=== PATIENT | female | born 1985 | race Caucasian/White ===

== ENCOUNTER 2018-01-09 09:43 | Emergency (ER) | payer BC ==
--- NOTE | 2018-01-09 10:03 | EDM.PDOC ---
ED HPI GENERAL MEDICAL PROBLEM - General Chief Complaint: Back Pain or Injury Time Seen by Provider: 01/09/18 09:52 - History of Present Illness INITIAL COMMENTS - FREE TEXT/NARRATIVE: HISTORY AND PHYSICAL: History of present illness: Patient 32-year-old female presents with concern of right-sided chest and back pleuritic pain worse over last several days unrelieved with over-the- counter medication states she has some mild shortness of breath she is on oral contraceptives she denies history DVT or PE denies trauma denies fever chills vomiting or other concern Review of systems: As per history of present illness and below otherwise all systems reviewed and negative. Past medical history: As per history of present illness and as reviewed below otherwise noncontributory. Surgical history: As per history of present illness and as reviewed below otherwise noncontributory. Social history: No reported history of drug or alcohol abuse. Family history: As per history of present illness and as reviewed below otherwise noncontributory. Physical exam: HEENT: Atraumatic, normocephalic, pupils reactive, negative for conjunctival pallor or scleral icterus, mucous membranes moist, throat clear, neck supple, nontender, trachea midline. Lungs: Clear to auscultation, breath sounds equal bilaterally, chest nontender. Heart: S1S2, regular, negative for clicks, rubs, or JVD. Abdomen: Soft, nondistended, nontender. Negative for masses or hepatosplenomegaly. Negative for costovertebral tenderness. Pelvis: Stable nontender. Genitourinary: Deferred. Rectal: Deferred. Extremities: Atraumatic, negative for cords or calf pain. Neurovascular unremarkable. Neuro: Awake, alert, oriented. Cranial nerves II through XII unremarkable. Cerebellum unremarkable. Motor and sensory unremarkable throughout. Exam nonfocal. Diagnostics: CBC CMP influenza hCG CTA PE protocol Therapeutics: Saline 1 L bolus Impression: #1 right-sided pleuritic chest/back pain Definitive disposition and diagnosis as appropriate pending reevaluation and review of above. - Related Data Allergies Allergy/AdvReac Type Severity Reaction Status Date / Time No Known Allergies Allergy Verified 12/25/15 19:22 Home Meds: Home Meds . [No Known Home Meds] 12/25/15 [History] Past Medical History - Past Health History Medical/Surgical History: Denies Medical/Surgical History Social & Family History - Tobacco Use Smoking Status *Q: Unknown Ever Smoked - Recreational Drug Use Recreational Drug Use: No ED ROS GENERAL - Review of Systems Review Of Systems: ROS reveals no pertinent complaints other than HPI. ED EXAM, GENERAL - Physical Exam Exam: See Below (Dictation) Course - Vital Signs Last Recorded V/S: Last Vital Signs Temp 36.6 C 01/09/18 09:56 Pulse 98 01/09/18 09:56 Resp 18 01/09/18 09:56 BP 126/85 01/09/18 09:56 Pulse Ox 98 01/09/18 09:56 - Orders/Labs/Meds Orders: Active Orders 24 hr Category Date Time Status CTA Chest W WO Contrast [Ang Chest] [CT] Stat Exams 01/09/18 10:02 Taken Labs: Laboratory Tests 01/09/18 01/09/18 01/09/18 Range/Units 10:14 10:14 10:14 WBC 7.97 (4.0-11.0) K/uL RBC 4.28 L (4.30-5.90) M/uL Hgb 13.9 (12.0-16.0) g/dL Hct 41.2 (36.0-46.0) % MCV 96.3 (80.0-98.0) fL MCH 32.5 H (27.0-32.0) pg MCHC 33.7 (31.0-37.0) g/dL RDW Std Deviation 43.6 (28.0-62.0) fl RDW Coeff of Triston 13 (11.0-15.0) % Plt Count 262 (150-400) K/uL MPV 10.40 (7.40-12.00) fL Neut % (Auto) 63.7 (48.0-80.0) % Lymph % (Auto) 29.5 (16.0-40.0) % [place] % (Auto) 5.1 (0.0-15.0) % Eos % (Auto) 1.4 (0.0-7.0) % Baso % (Auto) 0.3 (0.0-1.5) % Neut # (Auto) 5.1 (1.4-5.7) K/uL Lymph # (Auto) 2.4 (0.6-2.4) K/uL [place] # (Auto) 0.4 (0.0-0.8) K/uL Eos # (Auto) 0.1 (0.0-0.7) K/uL Baso # (Auto) 0.0 (0.0-0.1) K/uL Nucleated RBC % 0.0 /100WBC Nucleated RBCs # 0 K/uL Sodium 144 (136-146) mmol/L Potassium 3.7 (3.5-5.1) mmol/L Chloride 109 (98-110) mmol/L Carbon Dioxide 25 (21-31) mmol/L BUN 11 (6.0-23.0) mg/dL Creatinine 0.7 (0.6-1.5) mg/dL Est Cr Clr Drug Dosing 99.45 mL/min Estimated GFR (MDRD) > 60.0 ml/min Glucose 87 (60-110) mg/dL Calcium 9.4 (8.8-10.8) mg/dL Total Bilirubin 0.5 (0.1-1.5) mg/dL AST 21 (5-40) IU/L ALT 20 (8-54) IU/L Alkaline Phosphatase 60 (40-150) Total Protein 7.5 (6.0-8.0) g/dL Albumin 4.2 (3.5-5.0) g/dL Globulin 3.3 (2.0-3.5) g/dL Albumin/Globulin Ratio 1.3 (1.3-2.8) HCG, Qual NEGATIVE (NEG) Meds: Medications Discontinued Medications Generic Name Dose Route Start Last Admin Trade Name Freq PRN Reason Stop Dose Admin Iopamidol 50 ml 01/09/18 11:25 01/09/18 11:25 Isovue-370 (76%) IV 01/09/18 11:26 50 ml ONETIME ONE Administration Departure - Departure Time of Disposition: 12:22 Disposition: Home, Self-Care 01 Condition: Good Clinical Impression: Pleurisy - Discharge Information Referrals: PCP,None [Primary Care Provider] - Forms: ED Department Discharge Additional Instructions: The following information is given to patients seen in the emergency department who are being discharged to home. This information is to outline your options for follow-up care. We provide all patients seen in our emergency department with a follow-up referral. The need for follow-up, as well as the timing and circumstances, are variable depending upon the specifics of your emergency department visit. If you don't have a primary care physician on staff, we will provide you with a referral. We always advise you to contact your personal physician following an emergency department visit to inform them of the circumstance of the visit and for follow-up with them and/or the need for any referrals to a consulting specialist. The emergency department will also refer you to a specialist when appropriate. This referral assures that you have the opportunity for followup care with a specialist. All of these measure are taken in an effort to provide you with optimal care, which includes your followup. Under all circumstances we always encourage you to contact your private physician who remains a resource for coordinating your care. When calling for followup care, please make the office aware that this follow-up is from your recent emergency room visit. If for any reason you are refused follow-up, please contact the [facility] emergency department at and asked to speak to the emergency department charge nurse. Ultram/Motrin as directed follow-up private medical doctor as needed as discussed and return as needed as discussed - My Orders Last 24 Hours: My Active Orders 01/09/18 10:02 CTA Chest W WO Contrast [Ang Chest] [CT] Stat - Assessment/Plan Last 24 Hours: My Active Orders 01/09/18 10:02 CTA Chest W WO Contrast [Ang Chest] [CT] Stat
[2018-01-09 10:46] LABS: CHLORIDE,CL 109 mmol/L (98-110); SODIUM,NA 144 mmol/L (136-146)
[2018-01-09] MEDS ORDERED: Iopamidol 755 MG/ML 50 ML Bottle IV ONE (11:25)
[2018-01-09 12:39] VITALS: BP 115/71
--- NOTE | 2018-01-11 09:27 | CT ---
EXAM DATE: 01/09/18 PATIENT'S AGE: 32 Patient: SUNIL SWARTZ Facility: [place], [place] Site . Site : 1985 Study: CT Chest Angio [id number]/24/2018 11:29:35 AM Ordering Physician: Emmy Thurman Final Report: INDICATION: Radiating back pain/ chest pain. TECHNIQUE: Volumetric CT pulmonary angiogram following administration of 50 mL Isovue-370 intravenous contrast. Multiplanar reconstruction. FINDINGS: This is a technically good study. There are no pulmonary emboli. Thoracic aorta normal in caliber and displays normal contrast enhancement. Thyroid gland bilaterally symmetrical. Thoracic lymph nodes normal by size criteria. Trachea and mainstem bronchi are patent. Lungs free of nodules, masses, and areas of acute airspace consolidation. No pleural fluid. No abnormal pericardial fluid. No acute bony abnormality. IMPRESSION: Examination negative for pulmonary emboli. No other acute chest disease. Please note that all CT scans at this facility use dose modulation, iterative reconstruction, and/or weight-based dosing when appropriate to reduce radiation dose to as low as reasonably achievable. Dictated by Shamar Baker MD @ Jan 09 2018 11:58AM (Electronic Signature) Report Signed by Proxy. [facility]AMPUSMarcos
== END 2018-01-09 12:35 | disposition home or self-care (01) ==
LOC: MW.ED 09:43
DX: R09.1 Pleurisy (principal)
CPT/HCPCS: 36415; 71275; 80053; 84703; 85025; 87804; 99284; Q9967; 99283

== ENCOUNTER 2019-09-11 14:46 | Emergency (ER) | payer BC ==
--- NOTE | 2019-09-11 15:29 | EDM.PDOC ---
ED HPI GENERAL MEDICAL PROBLEM - General Chief Complaint: Upper Extremity Injury/Pain Stated Complaint: RT HAND PAIN Time Seen by Provider: 09/11/19 14:47 Source of Information: Reports: Patient, Family History Limitations: Reports: No Limitations, Language Barrier - History of Present Illness INITIAL COMMENTS - FREE TEXT/NARRATIVE: HISTORY AND PHYSICAL: History of present illness: Patient is a 34-year-old female, who is primarily speaking, who presents with her daughter who she is using for translation. Parts Representative was offered to patient but she declines at this time. Patient states that she has been having pins and needle sensation in her right hand over the past 2-3 days with pain in her right shoulder that radiates down to her right hand. Patient states her symptoms coming go and are not constant or consistent. Patient states that time she does feel like her hand is falling asleep but when she shakes it the sensation goes away. Patient denies any trauma or injury to the arm or any other symptoms or concerns. Patient denies any health history. Patient denies fever, chills, chest pain, shortness of breath, or cough. Denies headache, neck stiff ness, change in vision, syncope, or near syncope. Denies nausea, vomiting, abdominal pain, diarrhea, constipation, or dysuria. Has not noted any blood in urine or stool. Patient has been eating and drinking appropriately. Review of systems: As per history of present illness and below otherwise all systems reviewed and negative. Past medical history: As per history of present illness and as reviewed below otherwise noncontributory. Surgical history: As per history of present illness and as reviewed below otherwise noncontributory. Social history: See social history for further information Family history: As per history of present illness and as reviewed below otherwise noncontributory. Physical exam: General: Patient is alert, oriented, and in no acute distress. Patient sitting comfortably on exam table. HEENT: Atraumatic, normocephalic, pupils equal and reactive bilaterally, negative for conjunctival pallor or scleral icterus, mucous membranes moist, TMs normal bilaterally, throat clear, neck supple, nontender, trachea midline. No drooling or trismus noted. No meningeal signs. No hot potato voice noted. Lungs: Clear to auscultation, breath sounds equal bilaterally, chest nontender. Heart: S1S2, regular rate and rhythm without overt murmur Abdomen: Soft, nondistended, nontender. Negative for masses or hepatosplenomegaly. Negative for costovertebral tenderness. Pelvis: Stable nontender. Genitourinary: Deferred. Rectal: Deferred. Skin: Intact, warm, dry. No lesions or rashes noted. Extremities: Atraumatic, negative for cords or calf pain. Neurovascular unremarkable. Patient has complete range of motion of bilateral upper and lower extremities without pain or difficulty with no obvious deformity of bilateral upper extremities. Patient has full sensation of the RUE to light touch, 2 point discrimination, and sharp/dull touch. Radial pulses grossly intact of the right upper extremity with capillary refill less than 2 seconds. Patient does have mild pain to palpation of the right shoulder. Positive Phalen and Tinel sign of the right upper extremity Neuro: Awake, alert, oriented. Cranial nerves II through XII unremarkable. Cerebellum unremarkable. Motor and sensory unremarkable throughout. Exam nonfocal. Notes: Dr. Booth verbally involved in patient care. Voices understanding and is agreeable to plan of care. Denies any further questions or concerns at this time. Diagnostics: CBC, CMP, UA, shoulder x-ray, cervical spine XR Therapeutics: cock up wrist splint Prescription: None Impression: Radiculopathy Plan: 1. You can alternate ibuprofen and Tylenol as checked her for pain and discomfort. 2. Follow-up with your primary care provider as discussed. Return to the ED as needed and as discussed. Definitive disposition and diagnosis as appropriate pending reevaluation and review of above. 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 ED EXAM, GENERAL - Physical Exam Exam: See Below (See dictation) Course - Vital Signs Last Recorded V/S: Last Vital Signs Temp 97.1 F 09/11/19 14:54 Pulse 73 09/11/19 14:54 Resp 18 09/11/19 14:54 BP 112/77 09/11/19 15:35 Pulse Ox 98 09/11/19 14:54 - Orders/Labs/Meds Orders: Active Orders 24 hr Category Date Time Status DME for Discharge [COMM] Stat Oth 09/11/19 16:59 Ordered Labs: Laboratory Tests 09/11/19 09/11/19 09/11/19 Range/Units 15:32 15:45 15:45 WBC 7.20 (4.0-11.0) K/uL RBC 4.18 L (4.30-5.90) M/uL Hgb 13.4 (12.0-16.0) g/dL Hct 39.9 (36.0-46.0) % MCV 95.5 (80.0-98.0) fL MCH 32.1 H (27.0-32.0) pg MCHC 33.6 (31.0-37.0) g/dL RDW Std Deviation 42.7 (28.0-62.0) fl RDW Coeff of Triston 12 (11.0-15.0) % Plt Count 267 (150-400) K/uL MPV 10.60 (7.40-12.00) fL Neut % (Auto) 53.0 (48.0-80.0) % Lymph % (Auto) 41.3 H (16.0-40.0) % [place] % (Auto) 4.4 (0.0-15.0) % Eos % (Auto) 1.0 (0.0-7.0) % Baso % (Auto) 0.3 (0.0-1.5) % Neut # (Auto) 3.8 (1.4-5.7) K/uL Lymph # (Auto) 3.0 H (0.6-2.4) K/uL [place] # (Auto) 0.3 (0.0-0.8) K/uL Eos # (Auto) 0.1 (0.0-0.7) K/uL Baso # (Auto) 0.0 (0.0-0.1) K/uL Nucleated RBC % 0.0 /100WBC Nucleated RBCs # 0 K/uL Sodium 140 (136-145) mmol/L Potassium 3.8 (3.5-5.1) mmol/L Chloride 105 (98-107) mmol/L Carbon Dioxide 27.3 (21.0-32.0) mmol/L BUN 12 (7.0-18.0) mg/dL Creatinine 0.6 (0.6-1.0) mg/dL Est Cr Clr Drug Dosing 104.49 mL/min Estimated GFR (MDRD) > 60.0 ml/min Glucose 104 (74-106) mg/dL Calcium 9.1 (8.5-10.1) mg/dL Total Bilirubin 0.3 (0.2-1.0) mg/dL AST 15 (15-37) IU/L ALT 19 (14-63) IU/L Alkaline Phosphatase 60 (46-116) U/L Total Protein 7.9 (6.4-8.2) g/dL Albumin 3.7 (3.4-5.0) g/dL Globulin 4.2 H (2.6-4.0) g/dL Albumin/Globulin Ratio 0.9 (0.9-1.6) Urine Color YELLOW Urine Appearance CLEAR Urine pH 7.5 (5.0-8.0) Ur Specific [place] 1.020 (1.001-1.035) Urine Protein NEGATIVE (NEGATIVE) mg/dL Urine Glucose (UA) NEGATIVE (NEGATIVE) mg/dL Urine Ketones NEGATIVE (NEGATIVE) mg/dL Urine Occult Blood NEGATIVE (NEGATIVE) Urine Nitrite NEGATIVE (NEGATIVE) Urine Bilirubin NEGATIVE (NEGATIVE) Urine Urobilinogen 1.0 (<2.0) EU/dL Ur Leukocyte Esterase NEGATIVE (NEGATIVE) Departure - Departure Time of Disposition: 17:02 Disposition: Home, Self-Care 01 Clinical Impression: Radiculopathy Qualifiers: Spinal region: unspecified Qualified Code(s): M54.10 - Radiculopathy, site unspecified - Discharge Information Referrals: PCP,None [Primary Care Provider] - Forms: ED Department Discharge Additional Instructions: The following information is given to patients seen in the emergency department who are being discharged to home. This information is to outline your options for follow-up care. We provide all patients seen in our emergency department with a follow-up referral. The need for follow-up, as well as the timing and circumstances, are variable depending upon the specifics of your emergency department visit. If you don't have a primary care physician on staff, we will provide you with a referral. We always advise you to contact your personal physician following an emergency department visit to inform them of the circumstance of the visit and for follow-up with them and/or the need for any referrals to a consulting specialist. The emergency department will also refer you to a specialist when appropriate. This referral assures that you have the opportunity for follow-up care with a specialist. All of these measure are taken in an effort to provide you with optimal care, which includes your follow-up. Under all circumstances we always encourage you to contact your private physician who remains a resource for coordinating your care. When calling for follow-up care, please make the office aware that this follow-up is from your recent emergency room visit. If for any reason you are refused follow-up, please contact the [facility] Emergency Department at and asked to speak to the emergency department charge nurse. [facility] [address] [place] [address] [place] [address] 1. You can alternate ibuprofen and Tylenol as checked her for pain and discomfort. 2. Follow-up with your primary care provider as discussed. Return to the ED as needed and as discussed. - My Orders Last 24 Hours: My Active Orders 09/11/19 16:59 DME for Discharge [COMM] Stat - Assessment/Plan Last 24 Hours: My Active Orders 09/11/19 16:59 DME for Discharge [COMM] Stat
[2019-09-11 16:16] LABS: BLOOD UREA NITROGEN,BUN 12 mg/dL (7.0-18.0); CARBON DIOXIDE,CO2 27.3 mmol/L (21.0-32.0); CHLORIDE,CL 105 mmol/L (98-107); GLUCOSE RANDOM 104 mg/dL (74-106); POTASSIUM,K 3.8 mmol/L (3.5-5.1); SODIUM,NA 140 mmol/L (136-145)
--- NOTE | 2019-09-11 16:37 | CR ---
Indication: Pain with numbness and tingling. Technique: Right shoulder 3 views Comparison: None Findings: Bones: Alignment is normal. No fractures or bone lesions. Joint spaces: The glenohumeral and AC joints and the subacromial space are preserved. No significant degenerative changes. Soft tissues: Unremarkable. Impression: Unremarkable shoulder. No findings to explain pain. Dictated by Ja Dorsey MD @ Sep 11 2019 4:35PM Signed by Dr. Ja Dorsey @ Sep 11 2019 4:36PM
--- NOTE | 2019-09-11 16:39 | CR ---
INDICATION: Pain with numbness and tingling TECHNIQUE: Cervical spine 3 view. COMPARISON: None FINDINGS: Bones: Alignment is normal. No fractures or significant bone lesions. Joints: Disc spaces and facets are unremarkable. Soft tissues: Unremarkable. IMPRESSION: Unremarkable cervical spine. Dictated by Ja Dorsey MD @ Sep 11 2019 4:36PM Signed by Dr. Ja Dorsey @ Sep 11 2019 4:38PM
[2019-09-11 17:31] VITALS: BP 116/68; PULSE 68
== END 2019-09-11 17:31 | disposition home or self-care (01) ==
LOC: MW.ED 14:46
DX: M54.10 Radiculopathy, site unspecified (principal); Z88.0 Allergy status to penicillin
CPT/HCPCS: 36415; 72040; 72040-26; 73030-26-RT; 73030-RT; 80053; 81003; 85025; 99284-25

== ENCOUNTER 2021-12-25 16:11 | Inpatient (IN) | payer BC ==
[2021-12-25] MEDS ORDERED: Misoprostol 200 MCG Tab PO PRN (21:25)
[2021-12-25] MEDS ORDERED: Methylergonovine 0.2 MG/1 ML Amp IM PRN (21:25)
[2021-12-25] MEDS ORDERED: Water For Irrigation,Sterile 1,000 ML Container IRR PRN (21:25)
[2021-12-25] MEDS ORDERED: Nalbuphine 10 MG/1 ML Vial IVPUSH PRN (21:25)
[2021-12-25] MEDS ORDERED: Tranexamic Acid 1,000 MG in Sodium Chloride 0.9% 100 ML IV PRN (21:25)
[2021-12-25] MEDS ORDERED: Lidocaine 1% 50 ML MDV INJECT PRN (21:25)
[2021-12-25] MEDS ORDERED: Sodium Chloride 0.9% 2.5 ML Syringe FLUSH PRN (21:25)
[2021-12-25] MEDS ORDERED: Butorphanol 1 MG/ML SDV IVPUSH PRN (21:25)
[2021-12-25] MEDS ORDERED: Carboprost Tromethamine 250 MCG/1 ML Amp IM PRN (21:25)
[2021-12-25] MEDS ORDERED: Sodium Chloride 0.9% 10 ML Syringe FLUSH PRN (21:25)
[2021-12-25] MEDS ORDERED: Sodium Chloride 0.9% 20 ML SDV IV PRN (21:25)
[2021-12-25] MEDS ORDERED: Oxytocin/0.9 % Sodium Chloride 30 UNIT/500 ML BAG IV SCH (21:30)
[2021-12-25] MEDS: Lactated Ringers 1,000 ML IV SCH (22:27)
[2021-12-26] MEDS: Lactated Ringers 1,000 ML IV SCH
[2021-12-26] MEDS ORDERED: Ropivacaine HCl/PF 100 ML ONE (00:20)
[2021-12-26] MEDS ORDERED: ePHEDrine 50 MG/ML SDV IVPUSH PRN ×2 (00:40)
[2021-12-26] MEDS ORDERED: Ropivacaine HCl/PF 200 MG in Premix Bag 1 BAG EPIDUR SCH (00:45)
[2021-12-26] MEDS ORDERED: Lanolin 100% Cream 7 GM Tube TOP PRN (06:30)
[2021-12-26] MEDS ORDERED: Benzocaine/Menthol 20%-0.5% Spray 78 GM Cannister TOP PRN (06:30)
[2021-12-26] MEDS ORDERED: Tranexamic Acid 1,000 MG in Sodium Chloride 0.9% 100 ML IV PRN (06:30)
[2021-12-26] MEDS ORDERED: Methylergonovine 0.2 MG/1 ML Amp IM PRN (06:30)
[2021-12-26] MEDS ORDERED: Ibuprofen 800 MG Tab PO PRN (06:30)
[2021-12-26] MEDS ORDERED: Ibuprofen 400 MG Tab PO PRN (06:30)
[2021-12-26] MEDS ORDERED: Bisacodyl 10 MG Supp RECTAL PRN (06:30)
[2021-12-26] MEDS ORDERED: Acetaminophen 500 MG Tab PO PRN ×2 (06:30)
[2021-12-26] MEDS ORDERED: Witch Hazel Medicated Pads 40/Jar TOP PRN (06:30)
[2021-12-26] MEDS: Docusate Sodium 100 MG Cap PO PRN ×2 (10:29→20:24)
[2021-12-27 05:26] VITALS: PULSE 71
[2021-12-27 09:55] VITALS: BP 149/83
== END 2021-12-27 12:18 | disposition home or self-care (01) | DRG 560 ==
LOC: MW.OBCHECK 16:11 → MW.OB 16:12 → MW.OBCHECK 12-26 03:17 → MW.OB 12-26 03:17 → OBSVTOIN 12-26 06:13 → MW.OB 12-27 01:27
PROVIDERS: ADMIT Obstetrics & Gynecology; ATTEND Obstetrics & Gynecology
PROC: 10E0XZZ Delivery of Products of Conception, External Approach (ICD-10-PCS; principal; 2021-12-26)
PROC: 10907ZC Drainage of Amniotic Fluid, Therapeutic from Products of Conception, Via Natural or Artificial Opening (ICD-10-PCS; 2021-12-26)
PROC: 3E0R3BZ Introduction of Anesthetic Agent into Spinal Canal, Percutaneous Approach (ICD-10-PCS; 2021-12-26)
PROC: 00HU33Z Insertion of Infusion Device into Spinal Canal, Percutaneous Approach (ICD-10-PCS; 2021-12-26)
DX: O76 Abnormality in fetal heart rate and rhythm complicating labor and delivery (principal); O77.0 Labor and delivery complicated by meconium in amniotic fluid; Z37.0 Single live birth; Z20.822 Contact with and (suspected) exposure to COVID-19; Z3A.39 39 weeks gestation of pregnancy
CPT/HCPCS: 01967; 36415; 51702; 59025; 59409; 82803; 84112; 85014; 85018; 85027; 86592; 86850; 86900; 86901; A9270-GY; J2590; J2795; J7120; U0002